=== PATIENT | male | born 1975 | race Caucasian/White ===

== ENCOUNTER 2017-04-14 13:21 | Emergency (ER) | payer BC ==
[2017-04-14] MEDS ORDERED: Tetracaine 0.5% OPTH.SOL 4 ML* 1 DROP BTL BOTH EYES ONE (14:07)
[2017-04-14] MEDS ORDERED: Fluorescein Sodium TOPICAL* 1 MG TEST OPHTHALMIC ONE (14:08)
[2017-04-14] MEDS ORDERED: BSS OPTH.SOL* BTL ONE (14:12)
--- NOTE | 2017-04-14 14:12 | ED ---
Throat Pain/Nasal Congestion - HPI Summary HPI Summary: Patient presents to the with CC of right eye pain upon wakening this morning. He feels as though something may be lodged inside, but has rinsed it repeatedly with water with no improvement of symptoms. He awoke with some crusting at the upper eyelids and lashed. Pain is 8/10, constant, worse with opening and closing the eye. Denies known FB or working with metal or other objects. He denies any previous conjunctivitis and does not wear contacts. He is otherwise healthy. Endorses drainage and photophobia, but denies blurry vision or double vision. - History of Current Complaint Chief Complaint: UCEye Time Seen by Provider: 04/14/17 13:39 Hx Obtained From: Patient Onset/Duration: Sudden Onset Severity: Moderate Associated Signs And Symptoms: Positive: Negative - Epiglottits Risk Factors Epiglottis Risk Factors: Negative - Allergies/Home Medications Allergies/Adverse Reactions: Allergies Allergy/AdvReac Type Severity Reaction Status Date / Time No Known Allergies Allergy Verified 04/14/17 13:31 PMH/Surg Hx/FS Hx/Imm Hx Previously Healthy: Yes - Surgical History Surgery Procedure, Year, and Place: hernia - Immunization History Hx Pertussis Vaccination: No Immunizations Up to Date: Unable to Obtain/Confirm Infectious Disease History: No Infectious Disease History: Denies: Traveled Outside the [place] in Last 30 Days - Social History Occupation: Employed Full-time Lives: With Family Alcohol Use: None Hx Substance Use: No Substance Use Type: Reports: None Hx Tobacco Use: Yes Smoking Status (MU): Heavy Every Day Tobacco Smoker Type: Cigarettes Amount Used/How Often: 1/2 ppd Length of Time of Smoking/Using Tobacco: since age 16 Have You Smoked in the Last Year: Yes Review of Systems Constitutional: Negative Positive: Photophobia, Drainage, Erythema. Negative: Blurred Vision, Diplopia Cardiovascular: Negative Respiratory: Negative Genitourinary: Negative Positive: no symptoms reported Musculoskeletal: Negative Neurological: Negative Psychological: Normal All Other Systems Reviewed And Are Negative: Yes Physical Exam Triage Information Reviewed: Yes Vital Signs On Initial Exam: Initial Vitals Temp Pulse Resp BP Pulse Ox 99.1 F 83 16 146/84 100 04/14/17 13:24 04/14/17 13:24 04/14/17 13:24 04/14/17 13:24 04/14/17 13:24 Vital Signs Reviewed: Yes Appearance: Positive: Well-Appearing, Well-Nourished Skin: Positive: Warm, Skin Color Reflects Adequate Perfusion Head/Face: Positive: Normal Head/Face Inspection Eyes: Positive: Conjunctiva Inflammed - no fb noted; erythema Neck: Positive: Supple, No Lymphadenopathy Respiratory/Lung Sounds: Positive: Clear to Auscultation, Breath Sounds Present Musculoskeletal: Positive: Normal, Strength/ROM Intact Neurological: Positive: Sensory/Motor Intact, Alert, Oriented to Person Place, Time, Speech Normal Psychiatric: Positive: Normal AVPU Assessment: Alert Diagnostics - Vital Signs Vital Signs Temp Pulse Resp BP Pulse Ox 04/14/17 13:24 99.1 F 83 16 146/84 100 - Laboratory Lab Statement: Any lab studies that have been ordered have been reviewed, and results considered in the medical decision making process. EENT Course/Dx - Course Course Of Treatment: BP is slightly elevated at 146/84; but likely d/t pain on arrival. Upon eye examination, no fb noted; erythema. some crusting along the upper eyelids. Pain is 2/10 on arrival to ED. Used fluoroscein stain with no uptake. flipped the lid up and down with no visulization of the FB. Minimal tearing. He is given polymyxin drops. return precautions given. - Differential Diagnoses Differential Diagnoses: Conjunctivitis, Corneal Abrasion - Diagnoses Provider Diagnoses: Eye discomfort Discharge - Discharge Plan Condition: Stable Disposition: HOME Prescriptions: Polymyx/Trimethoprim OPTH* [Polytrim OPHTH*] 1 drop RIGHT EYE Q4H #1 btl Patient Education Materials: Eye Foreign Body (ED) Referrals: Abdelrahman Lobo MD [Medical Doctor] - Additional Instructions: If symptoms become worse, follow up with Dr. Lobo. I have given you a referral. Drops in the eye 4-6 times daily while awake Tylenol for discomfort If symptoms become worse, return to the
== END 2017-04-14 14:32 | disposition home or self-care (01) ==
LOC: UCEAST 13:21
DX: H57.11 Ocular pain, right eye (principal)
CPT/HCPCS: 99202; A9270-GY; G0463

== ENCOUNTER 2017-05-01 14:52 | Emergency (ER) | payer BC ==
[2017-05-01 15:05] VITALS: BP 140/90
--- NOTE | 2017-05-01 15:36 | UC ---
Back Pain HPI - History of Current Complaint Chief Complaint: UCBackPain Stated Complaint: LOWER LUMBAR PAIN Hx Obtained From: Patient Onset/Duration: Gradual Onset - started over past week with low back pain that radiates to R side of back and down R leg at times. no known injury. has tried no treatments other than stretching, no loss bowel or bladder Severity Initially: Mild Severity Currently: Moderate Character: Throbbing, Spasmodic, Stiffness Aggravating Factor(s): Movement, Bending Alleviating Factor(s): Rest, Heat Associated Signs And Symptoms: Positive: Tingling - lower R back - Risk Factors Cauda Equina Risk Factors: Negative - Allergies/Home Medications Allergies/Adverse Reactions: Allergies Allergy/AdvReac Type Severity Reaction Status Date / Time No Known Allergies Allergy Verified 04/14/17 13:31 Home Medications: Home Medications Albuterol HFA INHALER* [Ventolin HFA Inhaler*] 1 puff INH Q4H PRN 05/01/17 [ History Confirmed 05/01/17] Fluticasone HFA 220 mcg(NF) [Flovent Hfa 220 Mcg(NF)] 1 puff INH BID 05/01/17 [ History Confirmed 05/01/17] PMH/Surg Hx/FS Hx/Imm Hx Previously Healthy: Yes Respiratory History: Asthma - stable with albuterol and advair - Surgical History Surgical History: Yes Surgery Procedure, Year, and Place: hernia - Family History Known Family History: Positive: Hypertension - Social History Occupation: Employed Part-time - [employer] Lives: With Family Alcohol Use: None Substance Use Type: None Smoking Status (MU): Heavy Every Day Tobacco Smoker Type: Cigarettes Amount Used/How Often: 1/2 ppd Length of Time of Smoking/Using Tobacco: since age 16 Have You Smoked in the Last Year: Yes Cessation Counseling: Patient Advised to Stop Review of Systems Constitutional: Negative Respiratory: Negative Cardiovascular: Negative Musculoskeletal: Decreased ROM - LS spine d/t pain Neurological: Negative Psychological: Negative All Other Systems Reviewed And Are Negative: Yes Physical Exam Triage Information Reviewed: Yes Appearance: Well-Appearing, No Pain Distress, Well-Nourished Vital Signs: Initial Vital Signs Temp 98.1 F 05/01/17 15:02 Pulse 77 05/01/17 15:02 Resp 18 05/01/17 15:02 BP 140/90 05/01/17 15:02 Pulse Ox 99 05/01/17 15:02 Vital Signs Reviewed: Yes Respiratory Exam: Normal Cardiovascular Exam: Normal Musculoskeletal: Positive: Strength Intact, ROM Intact - with pain on extremes Neurological Exam: Normal Neurological: Positive: Alert, Muscle Tone Normal Psychological Exam: Normal Skin Exam: Normal Skin: Negative: rashes Back Pain Course/Dx - Course Course Of Treatment: iSTop Reference #: [id number] - Differential Dx/Diagnosis Differential Diagnosis/HQI/PQRI: Cauda Equina Syndrome, Herniated Disc, Strain, Sprain Provider Diagnoses: Back strain Discharge - Discharge Plan Condition: Stable Disposition: HOME Prescriptions: Carisoprodol TAB* [Soma TAB*] 350 mg PO TID PRN #6 tab MDD 3 PRN Reason: Pain - Moderate Ibuprofen TAB* [Motrin TAB* 800 MG] 800 mg PO Q6H #30 tab Patient Education Materials: Low Back Strain (ED) Referrals: No Primary Care Phys,NOPCP [Primary Care Provider] - Additional Instructions: use medication as directed and apply warm packs to low back recheck if no better 5 days
[2017-05-01] MEDS ORDERED: Ibuprofen TAB* 400 MG PO ONE (15:44)
[2017-05-01] MEDS ORDERED: Carisoprodol TAB* 350 MG PO ONE (15:44)
== END 2017-05-01 16:15 | disposition home or self-care (01) ==
LOC: UCEAST 14:52
DX: S39.012A Strain of muscle, fascia and tendon of lower back, initial encounter (principal); X58.XXXA Exposure to other specified factors, initial encounter; Y93.9 Activity, unspecified; Y92.9 Unspecified place or not applicable; J45.909 Unspecified asthma, uncomplicated; F17.210 Nicotine dependence, cigarettes, uncomplicated
CPT/HCPCS: 99212; A9270-GY; G0463

== ENCOUNTER 2017-05-12 14:06 | Emergency (ER) | payer BC ==
[2017-05-12 14:58] VITALS: BP 165/100
--- NOTE | 2017-05-12 15:09 | UC ---
Back Pain HPI - HPI Summary HPI Summary: 41 YEAR OLD MALE PRESENTS WITH COMPLAINS OF LOWER BACK PAIN. - History of Current Complaint Chief Complaint: UCBackPain Stated Complaint: BACK PAIN Time Seen by Provider: 05/12/17 15:03 Hx Obtained From: Patient Onset/Duration: Sudden Onset Timing: Constant Severity Initially: Moderate Severity Currently: Moderate Pain Scale Used: 0-10 Numeric - 6 Character: Sharp Aggravating Factor(s): Movement Associated Signs And Symptoms: Positive: Negative - Allergies/Home Medications Allergies/Adverse Reactions: Allergies Allergy/AdvReac Type Severity Reaction Status Date / Time No Known Allergies Allergy Verified 04/14/17 13:31 PMH/Surg Hx/FS Hx/Imm Hx Previously Healthy: Yes - Surgical History Surgical History: Yes Surgery Procedure, Year, and Place: hernia - Family History Known Family History: Positive: Hypertension - Social History Alcohol Use: None Substance Use Type: None Smoking Status (MU): Heavy Every Day Tobacco Smoker Type: Cigarettes Amount Used/How Often: 1/2 ppd Length of Time of Smoking/Using Tobacco: since age 16 Have You Smoked in the Last Year: Yes Review of Systems Constitutional: Negative Skin: Negative Eyes: Negative ENT: Negative Respiratory: Negative Cardiovascular: Negative Gastrointestinal: Negative Genitourinary: Negative Motor: Negative Neurovascular: Negative Musculoskeletal: Myalgia, Other: - LOWER BACK PAIN Neurological: Negative Psychological: Negative All Other Systems Reviewed And Are Negative: Yes Physical Exam Triage Information Reviewed: Yes Vital Signs: Initial Vital Signs Temp 36.6 C 05/12/17 14:52 Pulse 81 05/12/17 14:52 Resp 15 05/12/17 14:52 BP 165/100 05/12/17 14:52 Pulse Ox 99 05/12/17 14:52 Vital Signs Reviewed: Yes Eye Exam: Normal ENT Exam: Normal Dental Exam: Normal Neck exam: Normal Neck: Positive: 1 Respiratory Exam: Normal Cardiovascular Exam: Normal Abdominal Exam: Normal Musculoskeletal: Positive: Other: - LOWER BACK PAIN/SPASM Neurological Exam: Normal Psychological Exam: Normal Skin Exam: Normal Back Pain Course/Dx - Differential Dx/Diagnosis Provider Diagnoses: LOWER LUMBAR SPASM. BILATERAL SI JOINT PAIN Discharge - Discharge Plan Condition: Stable Disposition: HOME Prescriptions: Methocarbamol TAB* [Robaxin 500 MG TAB*] 500 mg PO TID PRN #30 tab PRN Reason: Spasms - Back Methylprednisolone [Medrol Dosepak 4 MG*] 4 mg PO .SEE BAILEE INSTRUCTION #21 tab Patient Education Materials: Sacroiliitis (ED), Muscle Spasm (ED) Forms: *Work Release Referrals: Veto GARZA,Landry Morgan [Medical Doctor] - No Primary Care Phys,NOPCP [Primary Care Provider] -
== END 2017-05-12 15:13 | disposition home or self-care (01) ==
LOC: UCEAST 14:06
DX: R25.2 Cramp and spasm (principal); F17.210 Nicotine dependence, cigarettes, uncomplicated; M25.50 Pain in unspecified joint
CPT/HCPCS: 99212; G0463

== ENCOUNTER 2017-06-04 13:51 | Emergency (ER) | payer SELFPAY ==
[2017-06-04 14:20] VITALS: BP 134/78
--- NOTE | 2017-06-04 14:45 | UC ---
Back Pain HPI - HPI Summary HPI Summary: 41 year old male presents with complains of lower back pain. - History of Current Complaint Chief Complaint: UCBackPain Stated Complaint: BACK PAIN Time Seen by Provider: 06/04/17 14:40 Hx Obtained From: Patient Onset/Duration: Sudden Onset Severity Currently: Moderate Pain Scale Used: 0-10 Numeric - 5 Character: Sharp Aggravating Factor(s): Movement Alleviating Factor(s): Position Associated Signs And Symptoms: Positive: Negative - Allergies/Home Medications Allergies/Adverse Reactions: Allergies Allergy/AdvReac Type Severity Reaction Status Date / Time No Known Allergies Allergy Verified 06/04/17 14:09 Home Medications: Home Medications Ibuprofen [Advil] 400 mg PO 06/04/17 [History] PMH/Surg Hx/FS Hx/Imm Hx Previously Healthy: Yes - Surgical History Surgical History: Yes Surgery Procedure, Year, and Place: umbilical hernia 1990s - Family History Known Family History: Positive: Hypertension - Social History Alcohol Use: None Substance Use Type: None Smoking Status (MU): Light Every Day Tobacco Smoker Type: Cigarettes Amount Used/How Often: 2-3cigs/ day Length of Time of Smoking/Using Tobacco: since age 16 Have You Smoked in the Last Year: Yes - Immunization History Most Recent Influenza Vaccination: 2016 Most Recent Tetanus Shot: states up to date Review of Systems Constitutional: Negative Skin: Negative Eyes: Negative ENT: Negative Respiratory: Negative Cardiovascular: Negative Gastrointestinal: Negative Genitourinary: Negative Motor: Negative Neurovascular: Negative Musculoskeletal: Other: - lower back pain Neurological: Negative Psychological: Negative All Other Systems Reviewed And Are Negative: Yes Physical Exam Triage Information Reviewed: Yes Vital Signs: Initial Vital Signs Temp 37.4 C 06/04/17 14:10 Pulse 85 06/04/17 14:10 Resp 20 06/04/17 14:10 BP 134/78 06/04/17 14:10 Pulse Ox 99 06/04/17 14:10 Vital Signs Reviewed: Yes Eye Exam: Normal ENT Exam: Normal Dental Exam: Normal Neck exam: Normal Neck: Positive: 1 Respiratory Exam: Normal Cardiovascular Exam: Normal Abdominal Exam: Normal Musculoskeletal Exam: Normal Neurological Exam: Normal Psychological Exam: Normal Skin Exam: Normal Back Pain Course/Dx - Differential Dx/Diagnosis Provider Diagnoses: low back pain Discharge - Discharge Plan Condition: Stable Disposition: HOME Prescriptions: Ibuprofen TAB* [Motrin TAB* 800 MG] 800 mg PO Q6H #30 tab Methocarbamol TAB* [Robaxin 500 MG TAB*] 500 mg PO TID PRN #30 tab PRN Reason: Spasms - Back Patient Education Materials: Low Back Strain (ED) Forms: *Work Release Referrals: No Primary Care Phys,NOPCP [Primary Care Provider] -
== END 2017-06-04 15:11 | disposition home or self-care (01) ==
LOC: UCEAST 13:51
DX: M54.5 Low back pain (principal); F17.210 Nicotine dependence, cigarettes, uncomplicated
CPT/HCPCS: 99212; G0463

== ENCOUNTER 2018-09-29 12:32 | Emergency (ER) | payer BC, OTHER ==
[2018-09-29 12:53] VITALS: BP 157/93
--- NOTE | 2018-09-29 13:10 | UC ---
FLU HPI - HPI Summary HPI Summary: 42-year-old male comes in with chief complaint of 2 days of fever chills sore throat cough chest congestion and body aches. He is bringing up some sputum with the coughing. Patient has not taken any medications for the symptoms as he prefers to not take pills. He's also been very tired and fatigued. Sleeping helps with the tiredness. - History of Current Complaint Chief Complaint: UCGeneralIllness Stated Complaint: EYE INJURY, SOB Time Seen by Provider: 09/29/18 12:41 Pain Intensity: 10 - Allergy/Home Medications Allergies/Adverse Reactions: Allergies Allergy/AdvReac Type Severity Reaction Status Date / Time No Known Allergies Allergy Verified 09/29/18 12:53 PMH/Surg Hx/FS Hx/Imm Hx Previously Healthy: Yes Respiratory History: Asthma - Surgical History Surgical History: Yes Surgery Procedure, Year, and Place: umbilical hernia 1990s - Family History Known Family History: Positive: Hypertension - Social History Alcohol Use: Occasionally Substance Use Type: None Smoking Status (MU): Light Every Day Tobacco Smoker Type: Cigarettes Amount Used/How Often: 2-3cigs/ day Length of Time of Smoking/Using Tobacco: since age 16 Have You Smoked in the Last Year: Yes - Immunization History Most Recent Influenza Vaccination: 2016 Most Recent Tetanus Shot: states up to date Review of Systems All Other Systems Reviewed And Are Negative: Yes Constitutional: Positive: Fever, Chills, Fatigue Skin: Positive: Negative Eyes: Positive: Negative ENT: Positive: Sore Throat, Nasal Discharge, Sinus Congestion Respiratory: Positive: Shortness Of Breath, Cough Cardiovascular: Positive: Negative Gastrointestinal: Positive: Negative Motor: Positive: Negative Neurovascular: Positive: Negative Musculoskeletal: Positive: Myalgia Neurological: Positive: Negative Psychological: Positive: Negative Is Patient Immunocompromised?: No Physical Exam Triage Information Reviewed: Yes Appearance: No Pain Distress, Well-Nourished, Ill-Appearing - MILD Vital Signs: Initial Vital Signs Temp 99.7 F 09/29/18 12:48 Pulse 102 09/29/18 12:48 Resp 20 09/29/18 12:48 BP 157/93 09/29/18 12:48 Pulse Ox 96 09/29/18 12:48 Vital Signs Reviewed: Yes Eye Exam: Normal Eyes: Positive: Conjunctiva Clear ENT: Positive: Pharyngeal erythema, Nasal congestion, Nasal drainage, TMs normal Neck exam: Normal Neck: Positive: Supple Respiratory: Positive: No respiratory distress, Wheezing Cardiovascular: Positive: RRR Musculoskeletal Exam: Normal Musculoskeletal: Positive: Strength Intact, ROM Intact Neurological Exam: Normal Neurological: Positive: Alert, Muscle Tone Normal Psychological Exam: Normal Psychological: Positive: Normal Response To Family, Age Appropriate Behavior Skin Exam: Normal Flu Course/Dx - Course Course Of Treatment: DISCUSSED VIRAL VERSES BACTERIAL INFECTION AND THE ROLE OF ANTIBIOTICS. THE PATIENT WISHES TO BE ON ANTIBIOTIC AT THIS TIME. - Differential Dx/Diagnosis Provider Diagnosis: Bronchitis with bronchospasm, Conjunctivitis Discharge - Sign-Out/Discharge Documenting (check all that apply): Patient Departure All imaging exams completed and their final reports reviewed: No Studies - Discharge Plan Condition: Stable Disposition: HOME Prescriptions: Albuterol HFA INHALER* [Ventolin HFA Inhaler*] 2 puff INH Q4H PRN #1 mdi PRN Reason: Wheezing Amoxicillin/Clavulanate SUSP* [Augmentin SUSP*] 880 mg PO BID #220 ml Ibuprofen TAB* [Motrin TAB* 600 MG] 600 mg PO Q6H PRN #30 tab PRN Reason: Pain Tobramycin 0.3% OPHTH.HEBER* 1 drop RIGHT EYE Q4H #1 btl Patient Education Materials: Conjunctivitis (ED), Acute Bronchitis (ED), Bronchospasm (ED) Referrals: [facility]ERR[facility] [Outside] Additional Instructions: FOLLOW UP WITH YOUR DOCTOR IF NOT COMPLETELY IMPROVED. GET RECHECKED FOR ANY WORSENING OF YOUR CONDITION OR QUESTIONS OR CONCERNS. - Billing Disposition and Condition Condition: STABLE Disposition: Home
[2018-09-29 13:13] LABS: Influenza A Molecular NEGATIVE (Negative); Influenza B Molecular NEGATIVE (Negative)
== END 2018-09-29 13:40 | disposition home or self-care (01) ==
LOC: UCEAST 12:32
DX: J45.909 Unspecified asthma, uncomplicated (principal); H10.9 Unspecified conjunctivitis; F17.210 Nicotine dependence, cigarettes, uncomplicated
CPT/HCPCS: 99202; G0463